=== PATIENT | female | born 1995 | race Caucasian/White ===

== ENCOUNTER 2018-07-09 15:04 | Emergency (ER) | payer OTHER ==
[~2018-07-09] VITALS: Ht 152.4 cm; Wt 92.0 kg
[2018-07-09 15:43] VITALS: Ht 152.4 cm; Wt 92.0 kg
[2018-07-09] MEDS ORDERED: KETOROLAC 30 MG INJ IV STA (17:15)
[2018-07-09] MEDS ORDERED: SOD CHLORIDE 0.9% 1,000 ML IV STA (17:15)
[2018-07-09] MEDS ORDERED: ACETAMINOPHEN 325 MG TAB PO ONE (17:30)
[2018-07-09] MEDS ORDERED: CEFTRIAXONE 1 GM/50 ML (PMX) 50 ML IVPB ONE (19:00)
[2018-07-09 20:06] VITALS: BP 104/54; PULSE 80; RESP 16
[2018-07-09] MEDS ORDERED: IBUP-1542 PO (20:10)
[2018-07-09] MEDS ORDERED: CIPR500T4 PO (20:10)
--- NOTE | 2018-07-09 20:15 | ERD ---
ER Documentation Chief Complaint Chief Complaint Complains of flank pain since this am HPI 22-year-old female presents with left flank pain and fever starting today. She may have dysuria as well. She denies any cough, shortness of breath, chest pain, right upper or right lower abdominal pain. Pain is in the left flank rating mild to the left mid abdomen. She denies . ROS All systems reviewed and are negative except as per history of present illness. Medications Home Meds Active Scripts Ciprofloxacin Hcl* (Ciprofloxacin Hcl*) 500 Mg Tablet, 500 MG PO BID for 10 Days, #20 TAB Prov:EDWARD RIVERA MD 07/09/18 Ibuprofen* (Motrin*) 600 Mg Tab, 600 MG PO Q6, #20 TAB Prov:EDWARD RIVERA MD 07/09/18 Allergies Allergies: Coded Allergies: No Known Allergy (Unverified , 07/09/18) PMhx/Soc Medical and Surgical Hx: pt denies Medical Hx, pt denies Surgical Hx Hx Alcohol Use: No Hx Substance Use: No Hx Tobacco Use: No Smoking Status: Never smoker FmHx Family History: No diabetes, No coronary disease, No other Physical Exam Vitals Vital Signs Date Temp Pulse Resp B/P (MAP) Pulse Ox O2 O2 Flow FiO2 Time Delivery Rate 07/09/18 99.1 80 16 104/54 98 Room Air 20:06 (71) 07/09/18 101.8 112 20 135/61 99 15:43 (85) Physical Exam Const: No acute distress Head: Atraumatic Eyes: Normal Conjunctiva ENT: Normal External Ears, Nose and Mouth. Neck: Full range of motion. No meningismus. Resp: Clear to auscultation bilaterally Cardio: Regular rate and rhythm, no murmurs Abd: Soft, non tender, non distended. Normal bowel sounds.No tenderness McBurney's point no Smalls sign. Skin: No petechiae or rashes Back: No midline tenderness. Mild left flank tenderness and left mid abdominal tenderness. Ext: No cyanosis, or edema Neur: Awake and alert Psych: Normal Mood and Affect Result Diagram: 07/09/18 1732 07/09/18 1732 Results 24 hrs Laboratory Tests Test 07/09/18 17:25 07/09/18 17:32 07/09/18 17:37 Urine Color YELLOW Urine Clarity CLEAR Urine pH 6.0 Urine Specific [place] 1.013 Urine Ketones NEGATIVE mg/dL Urine Nitrite NEGATIVE mg/dL Urine Bilirubin NEGATIVE mg/dL Urine Urobilinogen NEGATIVE mg/dL Urine Leukocyte Esterase 1+ Jade/ul Urine Microscopic RBC 3 /HPF Urine Microscopic WBC 84 /HPF Urine Squamous Epithelial Cells FEW /HPF Urine Bacteria FEW /HPF Urine Hemoglobin NEGATIVE mg/dL Urine Glucose NEGATIVE mg/dL Urine Total Protein NEGATIVE mg/dl White Blood Count 14.3 10^3/ul Red Blood Count 4.22 10^6/ul Hemoglobin 11.8 g/dl Hematocrit 35.4 % Mean Corpuscular Volume 83.9 fl Mean Corpuscular Hemoglobin 28.0 pg Mean Corpuscular 33.3 g/dl Hemoglobin Concent Red Cell Distribution Width 14.9 % Platelet Count 163 10^3/UL Mean Platelet Volume fl Immature Granulocytes % 0.600 % Neutrophils % 80.4 % Lymphocytes % 11.0 % Monocytes % 7.8 % Eosinophils % 0.1 % Basophils % 0.1 % Nucleated Red Blood Cells % 0.0 /100WBC Immature Granulocytes # 0.090 10^3/ul Neutrophils # 11.5 10^3/ul Lymphocytes # 1.6 10^3/ul Monocytes # 1.1 10^3/ul Eosinophils # 0.0 10^3/ul Basophils # 0.0 10^3/ul Nucleated Red Blood Cells # 0.0 10^3/ul Sodium Level 137 mmol/L Potassium Level 3.9 mmol/L Chloride Level 100 mmol/L Carbon Dioxide Level 24 mmol/L Anion Gap 13 Blood Urea Nitrogen 9 mg/dl Creatinine 0.64 mg/dl Est Glomerular Filtrat > 60 mL/min Rate mL/min Glucose Level 100 mg/dl Calcium Level 9.7 mg/dl Total Bilirubin 0.5 mg/dl Direct Bilirubin 0.00 mg/dl Indirect Bilirubin 0.5 mg/dl Aspartate Amino 41 IU/L Transf (AST/SGOT) Alanine 44 IU/L Aminotransferase (ALT/SGPT) Alkaline Phosphatase 88 IU/L Total Protein 7.8 g/dl Albumin 4.3 g/dl Globulin 3.50 g/dl Albumin/Globulin Ratio 1.22 Lipase 37 U/L POC Beta HCG, Qualitative NEGATIVE Current Medications Medications Dose Sig/Sammy Start Time Status Last (Trade) Ordered Route PRN Stop Time Admin Dose Reason Admin Sodium 1,000 ml @ Q1H STAT 07/09/18 DC 07/09/18 Chloride 1,000 mls/hr IV 17:15 17:35 07/09/18 18:14 Ketorolac 30 mg ONCE STAT 07/09/18 DC 07/09/18 Tromethamine IV 17:15 17:36 (Toradol) 07/09/18 17:17 650 mg ONCE ONCE 07/09/18 DC 07/09/18 Acetaminophen PO 17:30 17:36 (Tylenol 07/09/18 17:31 Tab) Ceftriaxone 50 ml @ ONCE ONCE 07/09/18 DC 07/09/18 Sodium 100 mls/hr IVPB 19:00 19:30 07/09/18 19:29 Procedures/MDM CBC shows white blood count of 14. Minimal anemia. Urine shows white blood cells leukocyte esterase. Urine was sent for culture. HCG negative. CMP shows no acute abnormalities or renal insufficiency or failure. Patient was given 1 L normal saline IV, Toradol 30 mill grams IV, Tylenol and Rocephin. Patient was well-appearing with resolution of pain improve vitals on serial exam. Patient has no signs of appendicitis, surgical abdomen, sepsis and is well-appearing. She will treated with Cipro, fever control, fluids, primary care follow-up and return precautions. The patient was stable with no new complaints during the ER course. Clinically, there is no current evidence to suggest meningitis, sepsis, acute abdomen, pneumonia, stroke, acute coronary syndrome, pulmonary embolism, aortic dissection or any other emergent condition appearing to require further evaluation or hospitalization. Patient counseled regarding my diagnostic impression and care plan. Prior to discharge all questions answered. Pt agrees with treatment plan and understands strict return precautions. Pt is instructed to follow up with primary care provider within 24-48 hours. Precautionary instructions provided including instructions to return to the ER if not improving or for any worsening or changing symptoms or concerns. Disclaimer: Inadvertent spelling and grammatical errors are likely due to EHR/dictation software use and do not reflect on the overall quality of patient care. Also, please note that the electronic time recorded on this note does not necessarily reflect the actual time of the patient encounter. Departure Diagnosis: Primary Impression: UTI (urinary tract infection) Urinary tract infection type: acute pyelonephritis Qualified Codes: N10 - Acute pyelonephritis Additional Impression: Flank pain Condition: Stable Patient Instructions: Pyelonephritis, Female (Adult) Additional Instructions: Drink plenty of fluids at home. Recheck for vomiting, worsening pain, new worsening symptoms with primary care doctor. Examination shows kidney infection today. EDWARD RIVERA MD Jul 09, 2018 20:15
== END 2018-07-09 20:22 | disposition home or self-care (01) ==
LOC: FTE 15:04
DX: N10 Acute pyelonephritis (principal)
CPT/HCPCS: 36415; 76775; 80053; 81001; 81025; 83690; 85025; 96361; 96365; 96375; J0696; J1885; J7030; Z7502; Z7610